=== PATIENT | female | born 1990 | race Caucasian/White ===

== ENCOUNTER 2017-04-20 17:46 | Emergency (ER) | payer MEDICAID, SELFPAY ==
[2017-04-20 18:05] VITALS: BP 122/79; PULSE 88; RESP 20; TEMP 37; O2SAT 97; BMI 33.0
--- NOTE | 2017-04-20 18:16 | HMH.EDUTC ---
[facility] [place] Clinical Impression: Lung infiltrate, Influenza Disposition: Home, Self-Care Condition on Discharge: Good Instructions: Influenza, DI for Cough -- Adult, DI for Fever (Symptom) -- Adult, DI for Pneumonia -- Adult Additional Instructions: ? Start Tamiflu today if you are going to take it. Discussed risk and possible benefits. ? Lots of rest ? Increase Fluids water, Gatorade, powerade, pedialyte,if infant/toddler/child ? Alternate Tylenol and / or ibuprofen as discussed for fever, aches, chills x 24 hours without medication for symptoms ? Follow up IMMEDIATELY for new or worsening Symptoms OR no noticeable improvement over the next 48-72 hours, 911 for difficulty or breathing ? You or your child area contagious until no fever, aches, chills for 24 hours with medication for symptoms Follow up with family doctor in 12-24 hours if no improvement or worsening of symptoms Straight to ER if any trouble breathing, or life threatening symptoms Return if needed Take medication as prescribed Prescriptions: Brompheniramine/Pseudoephed/Dm [Bromfed DM Cough Syrup 5mL] 10 ml PO Q4HP PRN #350 ml PRN Reason: Cough Albuterol Sulfate [Albuterol HFA Inhaler] 2 puffs IH Q6HP PRN #1 inh PRN Reason: Shortness Of Breath Or Wheezing Azithromycin [Z-David 250mg Tab] 250 mg PO UD DOSE PK #6 tab Benzonatate [Tessalon Perle 100mg Cap] 100 mg PO TID PRN #30 cap PRN Reason: Cough Oseltamivir Phosphate [Tamiflu 75mg Capsule] 75 mg PO BID #10 cap predniSONE [Prednisone 20mg Tab] 20 mg PO BID #10 tab Referrals: Mary Adame PA [Primary Care Provider] - Forms: Work/School Release Time of Disposition: 19:37 Medical Decision Making - Medical Records Medical records reviewed: Yes: I reviewed the patient's medical records. Vital Signs: 04/20/17 18:05 04/20/17 19:21 Temperature 98.6 F 98.6 F Temperature Source Temporal Artery Scan Pulse Rate 88 Pulse Rate [Right] 88 Respiratory Rate 20 20 Blood Pressure 122/79 Blood Pressure [Right Arm] 122/79 Blood Pressure Mean [Right Arm] 93 Blood Pressure Source [Right Arm] Automatic Cuff Blood Pressure Position [Right Arm] Sitting 02 Sat by Pulse Oximetry 97 Oxygen Delivery Method Room Air - Lab Data Lab results reviewed: Yes: I reviewed the patient's lab results. Lab Results 04/20/17 18:25: Influenza Type A Ag Positive A, Influenza Type B Ag Negative Orders (Tests/Meds): ED MEDICATIONS Discontinued Medications Generic Name Dose Route Start Last Admin Trade Name Freq PRN Reason Stop Dose Admin Albuterol/Ipratropium 3 ml 04/20/17 18:30 04/20/17 18:41 Duoneb 3ml Neb IH 04/20/17 18:31 3 ml ONCE ONE Administration ORDERS Category Date Time Status Chest XR 2 view (NOT portable) [XR chest 2V] Stat Exams 04/20/17 18:24 Taken - Radiology Data #1 Image(s): Chest Image Reviewed: Yes I reviewed the patient's radiology image w/the ED provider Infiltrated left base per discussion with Dr Mellissa Ceron Inquiry Pt receiving controlled substance: No Osmany was queried for this patient: No - Reevaluation(s) Time: 19:26 Reevaluation #1: Discussed treatment options with Gurwinder pharmacist and agreed Rocephin 1 gram and Azithromycin due to influenza diagnoses and Lung infiltrate, Patient no distress sitting up in room talking and laughing with family [facility] [place] - General Stated complaint: Dry cough, wheezing Mode of Arrival: Ambulatory Source of Information: Patient Limitations: No Limitations Description of Symptoms (Recalled from Triage Doc. by RN): COUGH, CONGESTION HEENT Symptoms (Recalled from RN notes): Yes Resp Symptoms (Recalled from RN notes): No Skin Symptoms (Recalled from RN notes): No MS Symptoms (Recalled from RN notes): No Functional Status (Recalled from RN notes): N - History of Present Illness Provider Complaint: Patient state that for the last week she has not been feeling well having cough,
--- NOTE | 2017-04-20 18:24 | ED_ITS ---
[facility] [place] Clinical Impression: Lung infiltrate, Influenza Disposition: Home, Self-Care Condition on Discharge: Good Instructions: Influenza, DI for Cough -- Adult, DI for Fever (Symptom) -- Adult , DI for Pneumonia -- Adult Additional Instructions: ? Start Tamiflu today if you are going to take it. Discussed risk and possible benefits. ? Lots of rest ? Increase Fluids water, Gatorade, powerade, pedialyte,if /toddler/child ? Alternate Tylenol and / or ibuprofen as discussed for fever, aches, chills x 24 hours without medication for symptoms ? Follow up IMMEDIATELY for new or worsening Symptoms OR no noticeable improvement over the next 48-72 hours, 911 for difficulty or breathing ? You or your child area contagious until no fever, aches, chills for 24 hours with medication for symptoms Follow up with family doctor in 12-24 hours if no improvement or worsening of symptoms Straight to ER if any trouble breathing, or life threatening symptoms Return if needed Take medication as prescribed Prescriptions: Brompheniramine/Pseudoephed/Dm [Bromfed DM Cough Syrup 5mL] 10 ml PO Q4HP PRN # 350 ml PRN Reason: Cough Albuterol Sulfate [Albuterol HFA Inhaler] 2 puffs IH Q6HP PRN #1 inh PRN Reason: Shortness Of Breath Or Wheezing Azithromycin [Z-David 250mg Tab] 250 mg PO UD DOSE PK #6 tab Benzonatate [Tessalon Perle 100mg Cap] 100 mg PO TID PRN #30 cap PRN Reason: Cough Oseltamivir Phosphate [Tamiflu 75mg Capsule] 75 mg PO BID #10 cap predniSONE [Prednisone 20mg Tab] 20 mg PO BID #10 tab Referrals: Mary Adame PA [Primary Care Provider] - Forms: Work/School Release Time of Disposition: 19:37 Medical Decision Making - Medical Records Medical records reviewed: Yes: I reviewed the patient's medical records. Vital Signs: 04/20/17 18:05 04/20/17 19:21 Temperature 98.6 F 98.6 F Temperature Source Temporal Artery Scan Pulse Rate 88 Pulse Rate [Right] 88 Respiratory Rate 20 20 Blood Pressure 122/79 Blood Pressure [Right Arm] 122/79 Blood Pressure Mean [Right Arm] 93 Blood Pressure Source [Right Arm] Automatic Cuff Blood Pressure Position [Right Arm] Sitting 02 Sat by Pulse Oximetry 97 Oxygen Delivery Method Room Air - Lab Data Lab results reviewed: Yes: I reviewed the patient's lab results. Lab Results 04/20/17 18:25: Influenza Type A Ag Positive A, Influenza Type B Ag Negative Orders (Tests/Meds): ED MEDICATIONS Discontinued Medications Generic Name Dose Route Start Last Admin Trade Name Freq PRN Reason Stop Dose Admin Albuterol/Ipratropium 3 ml 04/20/17 18:30 04/20/17 18:41 Duoneb 3ml Neb IH 04/20/17 18:31 3 ml ONCE ONE Administration ORDERS Category Date Time Status Chest XR 2 view (NOT portable) [XR chest 2V] Stat Exams 04/20/17 18:24 Taken - Radiology Data #1 Image(s): Chest Image Reviewed: Yes I reviewed the patient's radiology image w/the ED provider Infiltrated left base per discussion with Dr Mellissa Ceron Inquiry Pt receiving controlled substance: Pat Ceron was queried for this patient: No - Reevaluation(s) Time: 19:26 Reevaluation #1: Discussed treatment options with Gurwinder pharmacist and agreed Rocephin 1 gram and Azithromycin due to influenza diagnoses and Lung infiltrate, Patient no distress
--- NOTE | 2017-04-20 18:24 | XR_ITS ---
XR chest 2V Ordering Physician: Yudi Fajardo Patient Age: 27 years: Female HISTORY: ITS.REASON: congestioncough. TECHNIQUE: PA and lateral chest COMPARISON :2 view chest from 2014 FINDINGS Minimal pneumonic infiltrate at the left lower lobe retrocardiac region.. Left upper lung field is clear. Minimal wispy appearance of the right midlung-involving RML on lateral view; and question possibly subtle patchy area of infiltrate at the superior segment right lower lobe .. The heart, patrick mediastinal structures satisfactory. . Spleen normal size. . No pleural effusion of pneumothorax patrick heart, mediastinal structures appear satisfactory. Chest wall unremarkable. Incidental Air-fluid levels in colon but noted IMPRESSION 1. Minimal left lower lobe pneumonic infiltrate 2. Suspect minimal subtle infiltrate and atelectasis slightly. Questionable very subtle patchy infiltrate at the superior segment RLL
[2017-04-20 18:32] LABS: UTC Influenza A Antigen Positive (Negative); UTC Influenza B Antigen Negative (Negative)
[2017-04-20 19:21] VITALS: BP 122/79; PULSE 88; RESP 20; TEMP 37
== END 2017-04-20 19:58 | disposition home or self-care (01) ==
PROVIDERS: Emergency Provider Nurse Practitioner; Family Provider Physician Assistant; PCP Physician Assistant
DX: J10.1 Influenza due to other identified influenza virus with other respiratory manifestations (principal); R91.8 Other nonspecific abnormal finding of lung field; F39 Unspecified mood [affective] disorder; M79.7 Fibromyalgia; E55.9 Vitamin D deficiency, unspecified; F17.210 Nicotine dependence, cigarettes, uncomplicated
CPT/HCPCS: 71046; 87804; 96372; 99203